=== PATIENT | male | born 1960 | race African-American/Black ===

== ENCOUNTER → 2019-12-14 | Outpatient (CLI) | payer BC ==
--- NOTE | 2019-12-15 15:58 | Diagnostic Imaging Report ---
Indication: Reason For Exam: PREOP Technique: Single AP view of the chest. Comparison: Chest radiograph dated 05/19/2005 Findings: The cardiomediastinal silhouette is within normal limits. There is no focal consolidation, pneumothorax or pleural effusion. No acute osseous abnormality. Interval progression of severe right glenohumeral joint osteoarthrosis. There are multilevel discogenic degenerative changes of the visualized spine. IMPRESSION: No radiographic evidence of acute cardiopulmonary process.
== END | disposition home or self-care (01) ==
LOC: LAB 16:26
DX: Z01.818 Encounter for other preprocedural examination (principal); M19.011 Primary osteoarthritis, right shoulder
CPT/HCPCS: 71046